=== PATIENT | female | born 1975 | race Caucasian/White ===

== ENCOUNTER 2023-09-08 09:22 | Outpatient (OUT) | payer OTHER, SELFPAY ==
--- NOTE | 2023-09-08 09:33 | MM_ITS ---
Patient Name: KERRY VILLAR MR#: [id number] : 1975 Exam Date: 09/08/2023 Ordering Doctor: DR MILLA SIERRA RADIOLOGY REPORT PROCEDURE: MM TOMOSYNTHESIS SCREENING BI COMPARISON: MG MAMM SCREEN 3D ORACIO CAD, 07/29/2022. MG MAMM SCREEN ORACIO W CAD, 07/23/2020. MG MAMM ORACIO SCRN W CAD DIG, 10/22/2014. INDICATIONS: Screening Calculator Name NCI Breast Cancer Risk Assessment Tool 5 Year Breast Cancer Risk 1.50% Lifetime Breast Cancer Risk 16.30% Personal Breast Cancer No Personal Ovarian Cancer No Treatments None Family Cancers Mother with breast cancer at age 60. LOCATION: [facility] BREAST COMPOSITION: Heterogeneously dense,which may obscure small masses. FINDINGS: DIAGNOSTIC CATEGORY 1--NEGATIVE. RIGHT BREAST: No significant suspicious finding. No significant change has occurred. LEFT BREAST: No significant suspicious finding. No significant change has occurred. RECOMMENDATIONS: ROUTINE MAMMOGRAM AND CLINICAL EVALUATION IN 12 MONTHS. PLEASE NOTE: A NORMAL MAMMOGRAM DOES NOT EXCLUDE THE POSSIBILITY OF BREAST CANCER. A CLINICALLY SUSPICIOUS PALPABLE LUMP SHOULD BE BIOPSIED. Dictated by: Db Cox M.D. on 09/09/2023 at 12:48 Approved by: Db Cox M.D. on 09/09/2023 at 13:33
== END 2023-09-08 09:23 | disposition home or self-care (01) ==
LOC: MAMMO 09:25
PROVIDERS: PCP Family Medicine; Visit Provider Specialist
DX: Z12.31 Encounter for screening mammogram for malignant neoplasm of breast (principal); Z80.3 Family history of malignant neoplasm of breast
CPT/HCPCS: 77063; 77067

== ENCOUNTER 2024-09-12 10:38 | Outpatient (OUT) | payer OTHER, SELFPAY ==
--- NOTE | 2024-09-12 10:41 | MM_ITS ---
Patient Name: KERRY VILLAR MR#: [id number] : 1975 Exam Date: 09/12/2024 Ordering Doctor: DR MILLA SIERRA RADIOLOGY REPORT PROCEDURE: MM TOMOSYNTHESIS SCREENING BI COMPARISON: MM TOMOSYNTHESIS SCREENING BI, 09/08/2023. MG MAMM SCREEN 3D ORACIO CAD, 07/29/2022. INDICATIONS: Screening Calculator Name NCI Breast Cancer Risk Assessment Tool 5 Year Breast Cancer Risk 1.60% Lifetime Breast Cancer Risk 16.10% Personal Breast Cancer No Personal Ovarian Cancer No Treatments None Family Cancers Mother with breast cancer at age 60. LOCATION: [facility] BREAST COMPOSITION: The breasts are heterogeneously dense,which may obscure small masses. FINDINGS: DIAGNOSTIC CATEGORY 2--BENIGN FINDING. NO CHANGE FROM COMPARISON. This exam includes additional mammographic views for implant evaluation and shows no visible implant abnormality. RIGHT BREAST: No significant suspicious finding. LEFT BREAST: No significant suspicious finding. RECOMMENDATIONS: ROUTINE MAMMOGRAM AND CLINICAL EVALUATION IN 12 MONTHS. PLEASE NOTE: A NORMAL MAMMOGRAM DOES NOT EXCLUDE THE POSSIBILITY OF BREAST CANCER. A CLINICALLY SUSPICIOUS PALPABLE LUMP SHOULD BE BIOPSIED. Dictated by: Reinaldo Kessler MD on 09/12/2024 at 14:02 Approved by: Reinaldo Kessler MD on 09/12/2024 at 14:03
--- OUTSIDE RECORDS SUMMARY | 2024-09-12 10:57 | XMS_ITS | CCD ---
Author Organization [facility] Care Team Providers Care Toy Department Manager Name Role Phone DR CAROLINA KIM Admitting Unavailable JULIO, DR FIGUEROA Attending Unavailable MISTY NIX Primary Care Unavailable JULIO, DR FIGUEROA Consulting Unavailable WEST, DR DERIAN Peoples Consulting Unavailable MD Lizbeth Chinchilla Primary Care Provider [phone] DO Devaughn Palmer Attending Provider MD Filipe Hackett Attending Provider [phone] Filipe Hackett Attending Unavailable Filipe Hackett Admitting Unavailable NO FAMILY, PHYSICIAN Primary Care Unavailable Unallocated , Kangs Provider Primary Care Provi olga Problems Problem Classification Problem Date Documented Da te Episodic/Chronic Other screening for suspected conditions (not mental disorders or infectious disease) (4 sources) Encounter for screening mammogram for malignant neoplasm of breast; Translations: [ENC SCR MAMMO MALIG NEOPLASM BREAST] Onset: 07-29-2022 Episodic Residual codes; unclassified (1 source) Family history of malignant neoplasm of breast; Translations: [FAMILY HX MALIG NEOPLASM OF BREAST] Onset: 08-01-2022 Episodic Unclassified (1 source) Encounter for screening for malignant neoplasm of cervix; Translations: [Encounter for screening for malignant neoplasm of cervix] Onset: 09-27-2023 Results Test Name Value Interpretation Reference Range Facil ity Pap IG, rfx HPV all pthon Pap Image Guided Note Normal . [facility] Comment on above: Result Comment: TESTS RESULT FLAG UNITS REF RANGE LAB Clinician Provided Cytology Information No. of containers..01 ThinPrep Vial DIAGNOSIS: 01 NEGATIVE FOR INTRAEPITHELIAL LESION OR MALIGNANCY. Specimen adequacy: 01 Satisfactory for evaluation. Endocervical and/or squamous metaplastic cells (endocervical component) are present. Performed by: Bennie Finn, Coach Wirer (ASC) . 01 Note: Note 01 The Pap smear is a screening test designed to aid in the detection of premalignant and malignant conditions of the uterine cervix. It is not a diagnostic procedure and should not be used as the sole means of detecting cervical cancer. Both false-positive and false-negative reports do occur. Test Methodology: Note 01 This liquid based ThinPrep(R) pap test was screened with the use of an image guided system. . 01 The HPV DNA reflex criteria were not met with this specimen result therefore, no HPV testing was performed. FLAG LEGEND: L-Low Normal,H-High Normal,LL-Alert Low,HH-Alert High <-Panic Low,>-Panic High,A-Abnormal,AA-Critical Abnormal Performed at: 01 [facility] [address] [id number] Rosalind Wright MD, Performed at: - [facility] [address] [id number] Watch Repairer: Rosalind Wright MD, Phone: [phone] PERFORMED BY: [place] [address] [place] [address] PATHOLOGIST SCHEDULE CHECKER OBDULIA CHAHAL M.D. Performed By: #### P AP [id number] #### [facility] , MG MAMM SCREEN 3D ORACIO CADon 07-29-2022 MG MAMM SCREEN 3D ORACIO CAD Patient: KERRY VILLAR Exam Date: 07/29/2022 : 1975 Gender:F Ordering : DR CAROLINA KIM . Admission #: [id number] Family : Order #: [id number] CLICK HERE TO VIEW EXAM RADIOLOGY REPORT PROCEDURE: MAMMOGRAM SCREENING 3D BILATERAL CAD COMPARISON: MG MAMM SCREEN ORACIO W CAD, 05/24/2017. MG MAMM SCREEN ORACIO W CAD, 07/23/2020. INDICATIONS: Screening mammography Calculator Name NCI Breast Cancer Risk Assessment Tool 5 Year Breast Cancer Risk 1.50% Lifetime Breast Cancer Risk 16.60% Personal Breast Cancer No Personal Ovarian Cancer No Treatments None Family Cancers Mother with breast cancer at age 60. LOCATION: [facility] BREAST COMPOSITION: Heterogeneously dense,which may obscure small masses. FINDINGS: DIAGNOSTIC CATEGORY 1--NEGATIVE. NO CHANGE FROM COMPARISON ASSESSMENT. Scattered benign-appearing calcifications are present. This exam includes additional mammographic views for implant evaluation and shows no visible implant abnormality. RIGHT BREAST: No significant suspicious finding. LEFT BREAST: No significant suspicious finding. RECOMMENDATIONS: ROUTINE MAMMOGRAM AND CLINICAL EVALUATION IN 12 MONTHS. PLEASE NOTE: A NORMAL MAMMOGRAM DOES NOT EXCLUDE THE POSSIBILITY OF BREAST CANCER. A CLINICALLY SUSPICIOUS PALPABLE LUMP SHOULD BE BIOPSIED. Dictated by: Derian Kessler MD on 07/29/2022 at 12:06 Approved by: Derian Kessler MD on 07/29/2022 at 12:47 Normal [facility] Encounters Encounter Date Encounter Type Care Provider Facility Start: 07-23-2024 End: 07-23-2024 Telephone encounter Filipe Hackett MD Work Phone: [facility] Start: 09-27-2023 End: 09-27-2023 ambulatory Filipe Hackett Facility:[facility] Start: 09-27-2023 Encounter for gynecological examination (general) (routine) without abnormal findings Filipe Hackett [facility] Start: 09-27-2023 End: 09-27-2023 ambulatory MD Filipe Hackett Work Phone: [facility] Work Phone: Start: 09-27-2023 End: 09-27-2023 Departed Referred MD Filipe Hackett Work Phone: [facility] [place] Work Phone: Start: 07-01-2023 End: 07-01-2023 ambulatory MD Lizbeth Chinchilla Work Phone: [facility] Work Phone: Start: 07-01-2023 End: 07-01-2023 Patient encounter procedure MD Lizbeth Chinchilla Work Phone: [facility] Start: 07-29-2022 End: 07-30-[address] CAROLINA KIM Facility:[facility] Procedures Date Procedure Procedure Detail Performing Clinician Start: 09-09-2023 Mammography Filipe marquez MD Work Phone: Plan of Treatment Date Care Activity Detail Author Start: 09-09-2024 Screening for malign ant neoplasm of breast Mammogram [facility] Start: 06-10-2024 Influenza vaccination Influenz a Vaccine (#1) [facility] Start: 2006 Screening for malign ant neoplasm of cervix [facility] Start: 1997 Screening for malign ant neoplasm of cervix Pap Smear [facility] Start: 1975 Screening for malign ant neoplasm of colon [facility] Human papilloma viru s 16+18+31+33+35+39+45+51+5 2+56+58+59+66+68 DNA [Presence] in Cervix by Probe with signal amplification [facility] Human papilloma viru s 16+18+31+33+35+39+45+51+5 2+56+58+59+68 DNA [Presence] in Cervix by Probe with signal amplification [facility] Immunizations Immunization Date Immunization Notes Care Provider Fa cility 07-01-2023 influenza virus vaccine, unspecified formulation Filipe Hackett MD Work Phone: [facility] 08-18-2021 COVID-19 mRNA-1273 (Moderna) MD Lizbeth Chinchilla Work Phone: [facility] 10-29-2020 COVID-19 mRNA-1273 (Moderna) MD Lizbeth Chinchilla Work Phone: [facility] 10-01-2020 COVID-19 mRNA-1273 (Moderna) MD Lizbeth Chinchilla Work Phone: [facility] Payers Date Payer Category Payer Self-pay [id number] 2022 Private Health Insurance [employer] [id number] 1975 Unknown [id number] 1958 Unknown [id number] Unknown [id number] Worker's Compensation [facility] Ind [id number] Social History Date Type Detail Facility Tobacco smoking stat us [facility] Unknown if ever smoked [facility] Work Phone: Start: 1975 Sex Assigned At Female [facility] Start: 09-26-2023 Tobacco smoking status NHIS Ex-smoker [facility] History of tobacco use Current smoker [facility] History of tobacco use Cigarette Smoker [facility] Start: 09-26-2023 Tobacco use and exposure Smokeless tobacco non-user [facility] Start: 09-27-2023 Alcoholic beverage intake Current drinker of alcohol (finding) [facility] Start: 09-27-2023 Alcoholic beverage intake [facility] Start: 09-27-2023 Alcohol Use Disorder Identification Test - Consumption [AUDIT-C] [facility] How often to you hav e a drink containing alcohol? Monthly or less [facility] How many standard dr inks containing alcohol do you have on a typical day? 1 or 2 [facility] How often do you hav e 6 or more drinks on 1 occasion? Less than monthly [facility] Start: 09-26-2023 Gender identity Identifies as female gender (finding) [facility] Telephone encounter Note 07-23-2024 Telephone Encounter - Honey Melgar - 07/23/2024 8:41 AM EDT Note Date & Type Note Facility 07-23-2024 Telephone encount er Note Letter sent out on 07/23/24 to reschedule due to provider out of office. [facility] Note 07-23-2024 Telephone Encounter - Honey Melgar - 07/23/2024 8:41 AM EDT Note Date & Type Note Facility 07-23-2024 Miscellaneous Notes Formattin g of this note might be different from the original. Letter sent out on 07/23/24 to reschedule due to provider out of office. documented in this encounter [facility] Evaluation note Note Date & Type Note Facility Evaluation note No assessment information availa [facility] Work Phone: Summary Purpose Family History No Family History Records FoundNo Family History Records Found Advance Directives Advance Directive Response Recorded Date/ Time Advance Directives No February 21 7:33am Advance Directive Response Recorded Date/ Time Advance Directives No September 4:02pm Chief Complaint and Reason for Visit Chief Complaint flu vaccine Additional Source Comments INFORMATION SOURCE (unrecogn ized section and content) DATE CREATED AUTHOR 08/02/2022 [facility] DATE CREATED AUTHOR AUTHOR'S ORGANIZ ATION 10/13/2023 [facility] Care Teams (unrecognized sec tion and content) Team Status: Active Member Role Status Dates Lizbeth Chinchilla MD Primary Care Provider Active Team Status: Inactive Member Role Status Dates Lizbeth Chinchilla MD Primary Care Provider Active Devaughn Palmer DO [facility] Attending Provider Active Team Status: Inactive Member Role Status Dates Filipe Hackett MD Attending Provider Active Toy Department Manager Relationship Specialty Start Date End Date Unallocated, [facility] Provider, [address] [phone] PCP - General Family Medicine 09/27/23 Goals (unrecognized section and content) Goals may be documented in a n alternate sectionGoals may be documented in an alternate section FOR RECORDS PERTAINING TO PATIENTS WHO ARE OR HAVE BEEN ENROLLED IN A CHEMICAL DEPENDENCY/SUBSTANCEABUSE PROGRAM, SOME INFORMATION MAY BE OMITTED. This clinical summary was aggregated from multiple sources. Caution should be exercised in using it in the provision of clinical care. This summary normalizes information from multiple sources, and as a consequence, information in this document may materially change the coding, format and clinical context of patient data. In addition, data may be omitted in some cases. CLINICAL DECISIONS SHOULD BE BASED ON THE PRIMARY CLINICAL RECORDS. [facility] [employer] [facility]. provides no warranty or guarantee of the accuracy or completeness of information in this document.
== END 2024-09-12 10:39 | disposition home or self-care (01) ==
LOC: MAMMO 10:38
PROVIDERS: PCP Family Medicine; Visit Provider Specialist
DX: Z12.31 Encounter for screening mammogram for malignant neoplasm of breast (principal); Z80.3 Family history of malignant neoplasm of breast
CPT/HCPCS: 77063; 77067